=== PATIENT | female | born 1955 | race Caucasian/White ===

== ENCOUNTER 2017-01-06 15:50 | Emergency (ER) | payer MEDICARE ==
[2017-01-06 16:16] LABS: #Basophils 0.2 thou/uL (0.0-0.2); #Eosinphils 0.1 thou/uL (0.0-0.7); #Lymphocytes 1.7 thou/uL (1.20-3.40); #Monocytes 0.6 thou/uL (0.11-0.59); %Basophils 1.9 % (0.0-1.0); %Eosinophils 1.4 % (0.0-10.0); %Lymphocytes 19.7 % (21.0-51.0); %Monocytes 6.4 % (0.0-10.0); %Neutrophils 70.6 % (42.0-75.0); Hemoglobin 12.3 g/dL (12.0-16.0); Mean Corpuscular HGB CONC 35.6 g/dL (32.0-36.0); Mean Corpuscular Hemoglobin 35.4 pg (27.0-31.0); Mean Corpuscular Volume 99.4 fl (81.0-99.0); Mean Platelet Volume 8.1 fL (7.4-10.4); Platelet Count 216 thou/uL (130-400); RBC Distribution Width 12.9 % (11.5-14.5); Red Blood Cell (RBC) Count 3.46 mill/uL (4.20-5.40); White Blood Cell (WBC) Count 8.6 thou/uL (4.8-10.8)
[2017-01-06 16:17] LABS: MDiff Complete? YES; Manual Diff?? NO
[2017-01-06 16:24] LABS: ALT (SGPT) 11 U/L (8-55); AST (SGOT) 13 U/L (5-34); Albumin 4.2 g/dL (3.5-5.0); Alkaline Phosphatase 75 U/L (40-150); Anion Gap 15 mmol/L (10-20); BUN (Urea Nitrogen) 11 mg/dL (9.8-20.1); Bilirubin, Total 1.1 mg/dL (0.2-1.2); Calc. Creatinine Clearance 0 mL/min (70-130); Calcium 9.6 mg/dL (7.8-10.44); Carbon Dioxide 20 mmol/L (22-29); Chloride 111 mmol/L (98-107); Estimated GFR-MDRD 68; Glucose 104 mg/dL (70-105); Potassium 3.5 mmol/L (3.5-5.1); Protein, Total 7.2 g/dL (6.0-8.3); Sodium 142 mmol/L (136-145)
--- NOTE | 2017-01-06 17:40 | RAD ---
RADIOGRAPH PELVIS ONE VIEW: Date: 01-06-17 Time: 4:03 p.m. History: 61-year-old female with severe right hip pain after fall yesterday. FINDINGS: There is a right femoral neck fracture, with mild medial displacement of the distal fragment, and mi ld valgus angulation. The pelvic ring appears to be grossly intact. Multiple surgical clips are pres ent in the left side of the pelvis. IMPRESSION: Acute, traumatic, displaced, closed right femoral neck fracture. POS: BRITTNEY
--- NOTE | 2017-01-06 17:44 | RAD ---
RADIOGRAPH RIGHT HIP: Date: 01-06-17 History: 61-year-old female with acute traumatic right hip pain after fall. FINDINGS: Fracture of the femoral neck with mild rotation such that there is lateral impaction. No dislocation . IMPRESSION: Acute, traumatic, mildly displaced right femoral neck, impacted fracture. POS: BRITTNEY
--- NOTE | 2017-01-06 17:49 | CT ---
CT BRAIN NONCONTRAST: HISTORY: 61 year old female status post head trauma from fall. FINDINGS: There is no midline shift or any other mass effect. There is no evidence of acute intracranial hemo rrhage, large cortical infarct, or extraaxial fluid collection. The calvarium is intact. There is diffuse, severe parenchymal volume loss. There are low attenuation areas in the white matter. Thes e are nonspecific, but they are probably chronic ischemic white matter changes due to microvascular atherosclerosis. Ventricles are dilated, probably due to the atrophy. IMPRESSION: 1) No acute intracranial findings. 2) Severe brain atrophy, much greater than expected for stated age of 61 years. POS: ADITYA
--- NOTE | 2017-01-06 17:50 | CT ---
CT CERVICAL SPINE NONCONTRAST: HISTORY: 61-year-old female status post acute cervical trauma from fall. FINDINGS: There are no jumped or perched facets. There is no evidence of acute fracture. The vertebral body heights are maintained. There is no prevertebral soft tissue swelling. IMPRESSION: No evidence of acute fracture or acute traumatic subluxation. nora POS: BRITTNEY
--- NOTE | 2017-01-06 17:51 | CT ---
CT PELVIS NONCONTRAST: History: 61-year-old female with acute right hip traumatic fracture. FINDINGS: There is fracture of the right femoral neck with valgus angulation such that there is impaction on t he lateral side. There is a small amount of intrapelvic free fluid. The rest of the pelvic ring appe ars to be intact. IMPRESSION: Acute, traumatic, impacted, mildly displaced, closed fracture of the right femoral neck, with valgus angulation. POS: BRITTNEY
== END 2017-01-06 17:30 | disposition short-term general hospital (02) ==
LOC: BURERS 15:50
DX: S72.001A Fracture of unspecified part of neck of right femur, initial encounter for closed fracture (principal); F32.9 Major depressive disorder, single episode, unspecified; F03.90 Unspecified dementia, unspecified severity, without behavioral disturbance, psychotic disturbance, mood disturbance, and anxiety; Z87.891 Personal history of nicotine dependence; Z79.899 Other long term (current) drug therapy; W17.89XA Other fall from one level to another, initial encounter
CPT/HCPCS: 36415; 70450; 72125; 72170; 72192; 80053; 85025

== ENCOUNTER 2017-03-29 17:55 | Emergency (ER) | payer MEDICARE | END 2017-03-29 18:30 | disposition home or self-care (01) | LOC: BURERS 18:00 | DX: S01.01XA Laceration without foreign body of scalp, initial encounter (principal); S80.211A Abrasion, right knee, initial encounter; F32.9 Major depressive disorder, single episode, unspecified; F03.90 Unspecified dementia, unspecified severity, without behavioral disturbance, psychotic disturbance, mood disturbance, and anxiety; Z79.899 Other long term (current) drug therapy; Z87.891 Personal history of nicotine dependence | CPT/HCPCS: 12001 ==

== ENCOUNTER 2017-04-08 10:34 | Emergency (ER) | payer MEDICARE | END 2017-04-08 10:56 | disposition home or self-care (01) | LOC: BURERS 10:34 | DX: S01.01XD Laceration without foreign body of scalp, subsequent encounter (principal); F32.9 Major depressive disorder, single episode, unspecified; F17.210 Nicotine dependence, cigarettes, uncomplicated; F03.90 Unspecified dementia, unspecified severity, without behavioral disturbance, psychotic disturbance, mood disturbance, and anxiety; X58.XXXD Exposure to other specified factors, subsequent encounter ==